=== PATIENT | female | born 1990 | race Caucasian/White ===

== ENCOUNTER 2020-07-30 09:11 | Outpatient (REF) | payer OTHER, SELFPAY ==
[2020-07-30 11:08] LABS: MANUAL DIFF FLAG NO
[2020-07-30 11:17] LABS: Basophils Percent Auto 0.3 % (0-2); Eosinophils Absolute Auto 0.1 X10*3/uL (0.0-0.4); Eosinophils Percent Auto 1.3 % (0-4); Hematocrit 39.4 % (37-47); Hemoglobin 13.2 g/dl (12.0-16.0); Imm Gran Abs Auto 0.01 X10*3/uL (0.00-0.03); Imm Gran Pct Auto 0.2 % (0.0-0.4); Lymphocytes Absolute Auto 2.1 X10*3/uL (1.2-4.9); Lymphocytes Percent Auto 32.7 % (20-40); Mean Corpuscular HGB Conc 33.5 g/dl (31.0-35.0); Mean Corpuscular Hemoglobin 30.8 pg (27.0-33.0); Mean Corpuscular Volume 91.8 fL (80-98); Monocytes Absolute Auto 0.4 X10*3/uL (0.1-1.2); Monocytes Percent Auto 6.4 % (2-11); Neutrophils Absolute Auto 3.8 X10*3/uL (2.0-8.3); Neutrophils Percent Auto 59.1 % (45-73); Platelet Count 325 X10*3/uL (160-400); Red Blood Count 4.29 X10*6/uL (4.20-5.50); Red Cell Distribution Width 12.5 % (11.0-16.0); White Blood Count 6.4 X10*3/uL (4.8-10.8)
[2020-07-30 11:56] LABS: Alanine Aminotransferase 17 U/L (0-31); Albumin Level 4.5 g/dL (3.5-5.0); Alkaline Phosphatase 62 U/L (39-117); Anion Gap 14 (12-20); Aspartate Amino Transferase 14 U/L (5-31); Bilirubin Direct < 0.2 mg/dL (0.0-0.5); Bilirubin Total 0.4 mg/dL (0.0-1.0); Blood Urea Nitrogen 8 mg/dL (9-16); Calcium 10.8 mg/dL (8.4-10.2); Carbon Dioxide 25 mmol/L (22-29); Chloride 105 mmol/L (96-108); Cholesterol 254 mg/dL; Estimated Glomerular Filt Rate > 60; Glucose Fasting 102 mg/dL (60-99); HDL Cholesterol 56 mg/dL; LDL Cholesterol Calculated 175 mg/dl; Potassium 3.9 mmol/L (3.3-5.1); Sodium 140 mmol/L (135-145); Total Protein 7.3 g/dL (6.5-8.0); Triglycerides 116 mg/dL
[2020-07-30 11:59] LABS: TSH reflex Free T4 1.01 uIU/mL (0.32-4.0)
[2020-08-03 17:27] LABS: Vitamin D 25-OH, D2 <4 ng/mL; Vitamin D 25-OH, D3 27 ng/mL; Vitamin D 25-OH, Total 27 ng/mL (30-100)
== END 2020-07-30 09:12 | disposition home or self-care (01) ==
LOC: HO.HMGCLDS 09:11
PROVIDERS: PCP Internal Medicine; Visit Provider Internal Medicine
DX: Z00.01 Encounter for general adult medical examination with abnormal findings (principal); F41.1 Generalized anxiety disorder; F42.9 Obsessive-compulsive disorder, unspecified; E66.9 Obesity, unspecified; R03.0 Elevated blood-pressure reading, without diagnosis of hypertension; Z82.79 Family history of other congenital malformations, deformations and chromosomal abnormalities
CPT/HCPCS: 36415; 80048; 80061; 80076; 82306; 84443; 85025

== ENCOUNTER → 2020-09-07 10:14 | Outpatient (REF) | payer OTHER, SELFPAY ==
--- NOTE | 2020-09-07 10:20 | CA_ITS ---
Transthoracic Echocardiogram Patient (Last, First, Middle): Candy Solis, Gender: Female Date of : 1990 Age: 30 Procedure Date: 09/07/2020 Procedure Type: Transthoracic Echocardiogram Location: OP Height: 160.02 cm Weight: 96.16 kg BSA: 1.98 m2 Heart Rate: bpm BP: 138 / 84 mmHg Construction Carpenter: KANA Referring MD: Martell Flores MD Symptoms: Z82.79 - Family history of other congenital malformations, deformations and chromosomal abnormalities Study Quality: Fair ECG Rhythm: Sinus Conclusions: - The left ventricular systolic function is normal. The visually estimated ejection fraction is between 55-60%. - No obvious valvular pathology seen on this study. Findings Left Ventricle Normal left ventricular cavity size. There is normal left ventricular wall thickness. The left ventricular systolic function is normal. The visually estimated ejection fraction is between 55-60%. There is no evidence of regional wall motion abnormalities. Diastolic function is normal for age. Right Ventricle Normal right ventricular cavity size and systolic function. Atria Both atria are normal in size. Aortic Valve There is a normal trileaflet aortic valve. There is no aortic valve stenosis. There is no aortic valve regurgitation. Mitral Valve The mitral valve appears normal. There is no mitral valve regurgitation. There is no mitral valve stenosis. Pulmonic Valve The pulmonic valve was not well visualized. Tricuspid Valve Normal tricuspid valve structure. There is no tricuspid valve regurgitation. Tricuspid regurgitation envelope is inadequate for calculation of right ventricular systolic pressure. Great Vessels The aortic annulus, sinuses of valsalva, and asc aorta are normal in size. Venous The inferior vena cava is normal in size and collapses greater than 50% with inspiration. Pericardium/Pleural There is no evidence of pericardial effusion. Prior Study Comparison No prior study available for comparison. Recommendations, Care & Conclusions No obvious valvular pathology seen on this study. Measurements M-Mode Liner Measurements Normals - Women/Men AOV Cusps: 2.30 1.5-2.6 cm/m2 2D Linear Measurements IVSd: 0.94 0.6-0.9/0.6-1.0 cm LVIDd: 5.30 3.9-5.3/4.2-5.9 cm LVIDd Index: 2.68 2.4-3.2/2.2-3.1 cm/m2 LVIDs: 4.02 2.0-3.6 cm LVPWd: 0.90 0.7-1.1 cm Ao Root: 2.60 2.1-3.5 cm LA Diam: 2.90 2.7-3.8/3.0-4.0 cm LAIDs Index: 1.46 1.5-2.3 cm/m2 LV Mass: 223.09 67-162/88-224 g LV Mass Index: 112.67 43-95/49-115 g/m2 LVOT Diam: 2.40 3.0+(-)1.3 cm 2D Systolic Function EF 4C: 59.40 >55% EF 2C: 56.80 >55% EF BiP: 56.90 >55% Mitral Valve MV Pk E: 1.02 MV PK A: 0.69 MV Decel Time: 125.00 E/A: 1.50 E'Lateral: 17.80 E'Medial: 8.59 E/E' Med: 11.90 E/E' Lat: 5.70 PHT: 37.00 MVA PHT: 5.95 Decel [place]: 8.15 Aortic Valve AoV Pk Pratik: 1.48 AoV Pk Grad: 9.00 LVOT LVOT Pk Pratik: 1.00 LVOT Mn Pratik: 0.71 LVOT VTI: 0.19 LVOT Pk Grad: 4.00 LVOT Mn Grad: 2.00 LVOT Diam: 2.40 LVOT Area: 4.52 Diastolic Function MV Pk E: 1.02 MV Pk A: 0.69 E/A: 1.50 E'Medial: 8.59 E/E' Med: 11.90 E' Laterial: 17.80 E/E' Lat: 5.70 Great Vessels Aorta Ao Root-2D: 2.60 2.0-3.7 cm Ao Asc: 2.80 2.1-3.4 cm Ao Arch: 2.90 Pulmonary Valve PV Pk Pratik: 1.44 Peak PV Grad: 8.00 Updated in Other Vendor System with Status of Final Sumit Phillips MD electronically signed on 09/07/2020 3:02:07 PM with status of Final
== END ==
LOC: HO.CARD 10:14
PROVIDERS: PCP Internal Medicine; Visit Provider Internal Medicine
DX: R03.0 Elevated blood-pressure reading, without diagnosis of hypertension (principal); Z82.79 Family history of other congenital malformations, deformations and chromosomal abnormalities
CPT/HCPCS: 93306